=== PATIENT | female | born 1995 | race Caucasian/White ===

== ENCOUNTER 2021-10-10 22:22 | Emergency (ER) | payer BC ==
[~2021-10-10] VITALS: Ht 152.4 cm; Wt 99.8 kg
[2021-10-10 23:05] VITALS: BP 124/84
== END 2021-10-11 02:00 | disposition home or self-care (01) ==
LOC: ER 22:22
DX: S61.211A Laceration without foreign body of left index finger without damage to nail, initial encounter (principal); W26.0XXA Contact with knife, initial encounter; Y93.89 Activity, other specified; Y92.89 Other specified places as the place of occurrence of the external cause; Y99.8 Other external cause status
CPT/HCPCS: 12001; 73130

== ENCOUNTER 2023-02-21 09:27 | Observation (INO) | payer BC ==
[2023-02-21] MEDS ORDERED: PREN-96 PO (09:47)
== END 2023-02-21 10:37 | disposition home or self-care (01) ==
LOC: UNDOADMOB 09:27 → LDRP 09:27 → UNDODISOB 10:37
PROVIDERS: ADMIT Obstetrics & Gynecology; ATTEND Obstetrics & Gynecology
DX: O24.419 Gestational diabetes mellitus in pregnancy, unspecified control (principal); Z3A.33 33 weeks gestation of pregnancy
CPT/HCPCS: 76818; 82962; G0378

== ENCOUNTER 2023-02-27 10:48 | Observation (INO) | payer BC ==
[~2023-02-27 10:48] MED LIST: PREN-96 PO
== END 2023-02-27 12:10 | disposition home or self-care (01) ==
LOC: LDRP 10:48 → UNDOADMOB 10:48 → LDRP 10:53 → UNDODISOB 12:10
PROVIDERS: ADMIT Obstetrics & Gynecology; ATTEND Obstetrics & Gynecology
DX: O24.419 Gestational diabetes mellitus in pregnancy, unspecified control (principal); O26.893 Other specified pregnancy related conditions, third trimester; N89.8 Other specified noninflammatory disorders of vagina; Z3A.34 34 weeks gestation of pregnancy
CPT/HCPCS: 59025; 76818; 81002; 82948; 82962; 94760; G0378

== ENCOUNTER 2023-03-05 11:31 | Inpatient (IN) | payer BC ==
[~2023-03-05] VITALS: Ht 154.9 cm; Wt 93.0 kg
[2023-03-05 12:53] LABS: Basophils # (auto) 0 10 ^3/uL (0-0.2); Basophils % (auto) 0.5 % (0.0-2.0); Eosinophils # (auto) 0.1 10 ^3/uL (0-0.8); Eosinophils % (auto) 0.7 % (0.0-7.0); Hematocrit 41.3 % (36.0-46.0); Hemoglobin 13.6 g/dL (12.2-16.2); Lymphocytes # (auto) 2.6 10 ^3/uL (0.4-5.4); Mean Corpuscular Hemoglobin 31.5 pg (28.0-32.0); Mean Corpuscular Volume 95.5 fL (80.0-100.0); Monocytes # (auto) 0.6 10 ^3/uL (0-1.3); Neutrophils # (auto) 5.3 10 ^3/uL (1.6-8.6); Neutrophils % (auto) 61.8 % (37.0-80.0); Nucleated Red Blood Cells % 0.1 %; Red Blood Cells 4.32 10^6/uL (4.0-5.20); Red Cell Distribution Width 13.5 % (11.8-14.3); White Blood Cell 8.6 10^3/uL (4.4-10.8)
[2023-03-05 13:18] LABS: Alanine Aminotransferase 667 U/L (7-40); Alkaline Phosphatase 192 U/L (46-116); Anion Gap 8 (5-15); Aspartate Aminotransferase 264 U/L (13-40); BUN/Creatinine Ratio 22.6 (10.0-20.0); Blood Urea Nitrogen 12 mg/dL (9-23); Calcium 9.5 mg/dL (8.5-10.1); Carbon Dioxide 22 mmol/L (20-30); Chloride 104 mmol/L (98-107); Glucose 67 mg/dL (74-106); Potassium 4.1 mmol/L (3.5-5.1); Sodium 134 mmol/L (136-145)
[2023-03-05 13:19] LABS: Bilirubin, Total 0.3 mg/dL (0.2-1.0); Total Protein 7.2 g/dL (5.7-8.2)
[2023-03-05 13:28] LABS: INR 0.94 (0.9-1.15); Partial Thromboplastin Time 26.7 SEC (24.5-34.5); Prothrombin Time 9.9 sec (9.3-11.8)
[2023-03-05 13:40] LABS: Amphetamine Screen, Urine Neg (NEGATIVE); Barbiturate Scree,Urine Neg (NEGATIVE); Benzodiazephine Screen, Urine Neg (NEGATIVE); Cannabinoid Screen, Urine Neg (NEGATIVE); Cocaine Screen, Urine Neg (NEGATIVE); Opiate Scree,Urine Neg (NEGATIVE); Phencyclidine Screen, Urine Neg (NEGATIVE)
[2023-03-05 14:02] LABS: Uric Acid 4.1 mg/dL (3.1-7.8)
[2023-03-05 14:16] LABS: Urine Bacteria FEW /hpf (None Seen); Urine Blood Negative /uL (Negative); Urine Clarity Clear (Clear); Urine Color Yellow (Yellow); Urine Protein, UAD TRACE (Negative); Urine Specific Gravity 1.026 (1.001-1.035); Urine Urobilinogen Normal (Negative); Urine WBC 3 /hpf (0 - 5); Urine pH 5.5 (5.0-8.0)
[2023-03-05 14:17] LABS: Protein, Urine 24.8 mg/dL (0.0-11.9)
[2023-03-05 14:20] LABS: Creatinine, Urine 69.09 mg/dL (30.0-125.0); Urine Protein/Creatinine Ratio 0.36
[2023-03-05] MEDS ORDERED: BETAMETHASONE ACET (30mg/5ml) 5ml Vial 6mg/ml IM ONE (15:45)
[2023-03-05 20:04] LABS: Basophils # (auto) 0 10 ^3/uL (0-0.2); Basophils % (auto) 0.5 % (0.0-2.0); Eosinophils # (auto) 0 10 ^3/uL (0-0.8); Eosinophils % (auto) 0.2 % (0.0-7.0); Lymphocytes # (auto) 1.6 10 ^3/uL (0.4-5.4); Lymphocytes % (auto) 18.6 % (10.0-50.0); Mean Corpuscular Hemoglobin 31.5 pg (28.0-32.0); Mean Corpuscular Hgb Conc. 33.3 g/dL (32.0-36.0); Mean Corpuscular Volume 94.6 fL (80.0-100.0); Monocytes # (auto) 0.2 10 ^3/uL (0-1.3); Monocytes % (auto) 2.1 % (0.0-12.0); Neutrophils # (auto) 6.9 10 ^3/uL (1.6-8.6); Neutrophils % (auto) 78.6 % (37.0-80.0); Nucleated Red Blood Cells % 0.1 %; Red Blood Cells 4.44 10^6/uL (4.0-5.20); Red Cell Distribution Width 13.6 % (11.8-14.3); White Blood Cell 8.8 10^3/uL (4.4-10.8)
[2023-03-05 20:18] LABS: Protein, Urine 14.4 mg/dL (0.0-11.9)
[2023-03-05 20:20] LABS: Creatinine, Urine 51.19 mg/dL (30.0-125.0); Urine Protein/Creatinine Ratio 0.28
[2023-03-05 20:23] LABS: Alanine Aminotransferase 675 U/L (7-40); Albumin 4.2 g/dL (3.2-4.8); Alkaline Phosphatase 199 U/L (46-116); Anion Gap 10 (5-15); Aspartate Aminotransferase 266 U/L (13-40); BUN/Creatinine Ratio 16.4 (10.0-20.0); Blood Urea Nitrogen 9 mg/dL (9-23); Calcium 9.6 mg/dL (8.5-10.1); Carbon Dioxide 20 mmol/L (20-30); Chloride 106 mmol/L (98-107); Glucose 79 mg/dL (74-106); Potassium 4.1 mmol/L (3.5-5.1); Sodium 136 mmol/L (136-145)
[2023-03-05 20:24] LABS: Bilirubin, Total 0.4 mg/dL (0.2-1.0); Total Protein 7.6 g/dL (5.7-8.2)
[2023-03-05 20:38] LABS: Uric Acid 4.4 mg/dL (3.1-7.8)
[2023-03-05] MEDS ORDERED: MAGNESIUM SULFATE 100 ML IV ONE ×2 (21:05→21:15)
[2023-03-05] MEDS ORDERED: AMPICILLIN SOD 2GM INJ 2 GM in SODIUM CHL 0.9% 100 ML IV ONE (21:15)
[2023-03-05] MEDS ORDERED: LACTATED RINGER'S 1,000 ML IV SCH (21:15)
[2023-03-05] MEDS ORDERED: MAGNESIUM SULFATE 40MG/ML 1,000 ML IV SCH (21:15)
[2023-03-05 21:39] VITALS: RESP 18
[2023-03-05 22:41] VITALS: RESP 18
[2023-03-05 23:06] VITALS: BP 136/75; PULSE 119; RESP 18; TEMP 98.7; O2SAT 95
[2023-03-06 07:07] LABS: RPR Non Reactive (Non Reactive)
== END 2023-03-05 23:06 | disposition short-term general hospital (02) | DRG 833 ==
LOC: LDRP 11:31 → UNDOADMOB 11:31 → LDRP 11:38 → OBSVTOIN 21:30
PROVIDERS: ADMIT Obstetrics & Gynecology; ATTEND Obstetrics & Gynecology
DX: O16.3 Unspecified maternal hypertension, third trimester (principal); O14.93 Unspecified pre-eclampsia, third trimester; O99.513 Diseases of the respiratory system complicating pregnancy, third trimester; J45.909 Unspecified asthma, uncomplicated; O24.410 Gestational diabetes mellitus in pregnancy, diet controlled; O14.23 HELLP syndrome (HELLP), third trimester; Z3A.35 35 weeks gestation of pregnancy
CPT/HCPCS: 59025; 76818; 80053; 80307; 81001; 81002; 82570; 82948; 84112; 84156; 84550; 85025; 85610; 85730; 86592; 94760; 96360; 96361; 96365; 96372; G0378

== ENCOUNTER 2025-01-20 11:00 | Observation (INO) | payer BC ==
[2025-01-20] MEDS ORDERED: ASPI-543 PO (11:39)
== END 2025-01-20 12:40 | disposition home or self-care (01) ==
LOC: LDRP 11:00 → UNDOADMOB 11:00 → LDRP 11:09
PROVIDERS: ADMIT Obstetrics & Gynecology; ATTEND Obstetrics & Gynecology
DX: O24.419 Gestational diabetes mellitus in pregnancy, unspecified control (principal); Z3A.22 22 weeks gestation of pregnancy; Z98.890 Other specified postprocedural states
CPT/HCPCS: 59025; 81002; 82948; 94760; G0378